=== PATIENT | male | born 1985 | race Caucasian/White ===

== ENCOUNTER 2016-05-31 09:11 | Emergency (ER) | payer BC, OTHER ==
[2016-05-31] MEDS ORDERED: SODIUM CHLORIDE 0.9% 1000ML 1,000 ML IVS ONE ×2 (09:24→10:37)
[2016-05-31] MEDS ORDERED: ONDANSETRON INJ 4 MG/2 ML VIAL IV ONE (09:24)
--- NOTE | 2016-05-31 09:27 | ED.PDOC ---
History of Present Illness - General Chief Complaint: GI Problem Stated Complaint: diarrhea and vomiting Time Seen by Provider: 05/31/16 09:13 Information Source: patient, RN notes reviewed, Vital Signs reviewed Exam Limitations: no limitations - History of Present Illness Initial Comments: Patient reports on Thu he started with diarrhea. This has continued ~ every 30 minutes for the past 3 days. Watery, no blood. + abd cramping which has now resolved. Vomiting started , stopped and then started again this morning. + chills and sweats. Abdominal Pain Onset Location: generalized abdomen Pain Radiation: no radiation Quality: cramping Timing/Duration: days - 3 Improving Factors: nothing Worsening Factors: nothing Associated Symptoms: diarrhea, fever/chills, fatigue, nausea/vomiting Review of Systems - Review of Systems Constitutional: States: chills, diaphoresis, fever, malaise EENTM: States: no symptoms reported Respiratory: States: no symptoms reported. Denies: cough, short of breath Cardiology: States: no symptoms reported. Denies: chest pain, palpitations, syncope Gastrointestinal/Abdominal: States: see HPI, abdominal pain - resolved, diarrhea , nausea, vomiting Genitourinary: States: no symptoms reported Musculoskeletal: States: no symptoms reported. Denies: back pain Skin: States: no symptoms reported Neurological: States: no symptoms reported. Denies: headache Endocrine: States: no symptoms reported Family Medical History - Family History Mother Family History: Unknown Physical Exam - Physical Exam General Appearance: Alert, Comfortable, No apparent distress, Well Developed, Well Groomed, Well Nourished Eyes, Ears, Nose, Throat Exam: other - Dry mucous membranes Neck: non-tender, full range of motion, supple, normal inspection Respiratory: lungs clear, normal breath sounds, no respiratory distress, no accessory muscle use Cardiovascular/Chest: regular rate, rhythm, no edema, no gallop, no JVD, no murmur Gastrointestinal/Abdominal: non tender, soft, no organomegaly, no pulsatile mass , abnormal bowel sounds - hyperactive Extremity: normal range of motion, non-tender, normal inspection, no pedal edema Neurologic: no motor/sensory deficits, alert, normal mood/affect, oriented x 3 Skin Exam: normal color, warm/dry Lymphatic: no adenopathy Comments: Vital Signs - 24 hr 05/31/16 05/31/16 09:17 10:30 Temperature 99.7 F H Pulse Rate [RT 103 H 103 H BRACHIAL] Respiratory 16 16 Rate Blood Pressure 126/85 114/76 [RIGHT BRACHIAL ] O2 Sat by Pulse 97 96 Oximetry Progress - Progress Progress: 05/31/16 10:38 Patient reports he is feeling better after Zofran and NS. Will give Imodium and a second L of NS. - Results/Orders Results/Orders: Abnormal Lab Results 05/31/16 05/31/16 05/31/16 09:40 09:40 09:44 Hgb 19.1 H Hct 56.6 H MCV 94.1 H MCH 31.7 H Absolute Neuts (auto) 7.50 H Absolute Monos (auto) 0.90 H Neutrophils % 78.3 H Lymphocytes % 10.9 L Monocytes % 9.7 H Eosinophils % 0.9 L Sodium 132 L Potassium 3.3 L Chloride 95 L Anion Gap 19.3 H BUN 22 H Creatinine 1.34 H Random Glucose 130 H Serum Osmolality 269.6 L AST 68 H Serum Total Protein 9.8 H Globulin 4.9 H Albumin/Globulin Ratio 1.0 L Urine Protein >=300 H Urine Blood Trace-intact H Laboratory Tests 05/31/16 05/31/16 05/31/16 09:40 09:40 09:44 WBC 9.6 RBC 6.02 Hgb 19.1 H Hct 56.6 H MCV 94.1 H MCH 31.7 H MCHC 33.7 RDW 13.4 Plt Count 166 MPV 8.4 Absolute Neuts (auto) 7.50 H Absolute Lymphs (auto) 1.10 Absolute Monos (auto) 0.90 H Absolute Eos (auto) 0.10 Absolute Basos (auto) 0.00 Neutrophils % 78.3 H Lymphocytes % 10.9 L Monocytes % 9.7 H Eosinophils % 0.9 L Basophils % 0.2 Sodium 132 L Potassium 3.3 L Chloride 95 L Carbon Dioxide 21 Anion Gap 19.3 H BUN 22 H Creatinine 1.34 H BUN/Creatinine Ratio 16.4 Random Glucose 130 H Serum Osmolality 269.6 L Calcium 10.0 Total Bilirubin 0.8 AST 68 H ALT 50 Alkaline Phosphatase 62 Serum Total Protein 9.8 H Albumin 4.9 Globulin 4.9 H Albumin/Globulin Ratio 1.0 L Urine Color Yellow Urine Appearance Clear Urine pH 6.0 Ur Specific [place] >= 1.030 Urine Protein >=300 H Urine Glucose (UA) Negative Urine Ketones Trace Urine Blood Trace-intact H Urine Nitrite Negative Urine Bilirubin Large Urine Urobilinogen 0.2 Ur Leukocyte Esterase Negative Urine RBC 0-1 Urine WBC 0 Ur Epithelial Cells 0-1 Urine Bacteria 0 Departure - Departure Clinical Impression: Gastroenteritis, Dehydration Time of Disposition: 11:15 Disposition: Discharge to Home or Self Care Condition: Good Departure Forms: ED Discharge - Pt. Copy, Patient Portal Self Enrollment Instructions: Viral Gastroenteritis, DI for Dehydration -- Adult Referrals: Vik Vinson MD [Primary Care Provider] - 1-2 Weeks Prescriptions: Ondansetron Odt [Zofran ODT] 8 mg PO Q6HRS PRN #20 tab PRN Reason: Nausea/Vomiting Home Medications: Ambulatory Orders Ondansetron Odt [Zofran ODT] 8 mg PO Q6HRS PRN #20 tab 05/31/16
[2016-05-31 10:01] VITALS: TEMP 99.7
[2016-05-31] MEDS ORDERED: LOPERAMIDE CAP 2 MG CAP PO ONE (10:39)
[2016-05-31 10:55] VITALS: BP 114/76; O2SAT 96
== END 2016-05-31 11:37 | disposition home or self-care (01) ==
LOC: ER 09:11
DX: K52.9 Noninfective gastroenteritis and colitis, unspecified (principal); E86.0 Dehydration
CPT/HCPCS: 36415; 80053; 81001; 83630; 85025; 87045; 87046; 87177; 87209; J2405; J7030